=== PATIENT | male | born 1985 | race Caucasian/White ===

== ENCOUNTER 2018-09-25 18:52 | Emergency (ER) | payer OTHER ==
[2018-09-25 19:14] VITALS: BP 117/88; PULSE 88; BMI 29.3
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
== END 2018-09-25 19:25 | disposition home or self-care (01) ==
LOC: FER 18:52
DX: Z04.1 Encounter for examination and observation following transport accident (principal); V63.6XXA Passenger in heavy transport vehicle injured in collision with car, pick-up truck or van in traffic accident, initial encounter; Y93.89 Activity, other specified; Y92.410 Unspecified street and highway as the place of occurrence of the external cause; E78.00 Pure hypercholesterolemia, unspecified; G80.9 Cerebral palsy, unspecified; F84.9 Pervasive developmental disorder, unspecified
CPT/HCPCS: 99281-25